=== PATIENT | female | born 1980 | race Caucasian/White ===

== ENCOUNTER 2022-12-28 07:41 | Day surgery (SDC) | payer OTHER ==
[~2022-12-28] VITALS: Ht 152.4 cm; Wt 129.1 kg
[~2022-12-28 07:41] MED LIST: SODIUM CHLORIDE 0.9% 1,000 ML IV ONE; SODIUM CHLORIDE 0.9% 1,000 ML ONE
[2022-12-28] MEDS ORDERED: SUCR1TAB PO (07:43)
[2022-12-28] MEDS ORDERED: IBUP-2070 PO (07:43)
[2022-12-28] MEDS ORDERED: PANT40TA54 PO (07:43)
[2022-12-28] MEDS ORDERED: FAMO40TA7 PO (07:43)
[2022-12-28] MEDS ORDERED: LISI20TA24 PO (07:43)
[2022-12-28] MEDS ORDERED: OMEP20CA12 PO (08:34)
[2022-12-28] MEDS ORDERED: PROPOFOL 1% 20 ML VIAL IVP ONE (12:00)
[2022-12-28] MEDS ORDERED: LIDOCAINE/PF 2% 5 ML VIAL IM ONE (12:00)
== END 2022-12-28 10:10 | disposition home or self-care (01) ==
LOC: SURGERY 07:41
PROVIDERS: ATTEND Internal Medicine Gastroenterology
DX: K21.9 Gastro-esophageal reflux disease without esophagitis (principal); K29.50 Unspecified chronic gastritis without bleeding; Z90.49 Acquired absence of other specified parts of digestive tract; Z90.710 Acquired absence of both cervix and uterus; Z79.899 Other long term (current) drug therapy; Z98.890 Other specified postprocedural states
CPT/HCPCS: 43239; 84703; C1769; J2704; J3490; J7030; 88305; 88312; 88313